=== PATIENT | female | born 1990 | race Caucasian/White ===

== ENCOUNTER 2024-01-13 15:49 | Emergency (ER) | payer BC, SELFPAY ==
--- NOTE | ~2024-01-13 | XR_ITS ---
EXAMINATION: XR wrist RT min 3V DATE: 01/13/2024 16:11 INDICATION: Right wrist injury. Fall. TECHNIQUE: 3 views of right wrist were obtained. COMPARISON: None. FINDINGS: There is a comminuted fracture of distal radius involving the distal radioulnar joint and d istal articular surface. The main distal fracture fragment demonstrates impaction and dorsal angulati on. There is 6 degrees dorsal tilt of the distal articular surface. Joint spaces are normal. IMPRESSION: 1. Comminuted fracture of distal radius. Reviewed, dictated and finalized at location E.
[2024-01-13 15:53] VITALS: BP 110/76; PULSE 95; RESP 18; TEMP 36.7; O2SAT 97
[2024-01-13] MEDS: HYDROcodone/acetaminophen (*CRX) 5-325 MG TABLET 1 TAB PO (16:43)
--- NOTE | 2024-01-13 17:10 | ED.UPPEXIN ---
HPI - Extremity Injury (Upper) General Chief Complaint: Extremity Injury, Upper Stated Complaint: wrist injury Time Seen by Provider: 01/13/24 16:21 History of Present Illness HPI narrative: patient was playing soccer and had FOOSH injury right wrist. Reporting pain but no numbness or weakness. No other injuries. Related Data Allergies Allergy/AdvReac Type Severity Reaction Status Date / Time No Known Allergies Allergy Unverified 09/18/18 20:35 Review of Systems Review of Systems: All systems reviewed & are unremarkable except as noted in HPI and below Exam Narrative: EXAMINATION OF ORGAN SYSTEMS/BODY AREAS: Constitutional: Vital signs per nursing GENERAL:[No acute distress, non-toxic appearing.] HEAD: Normal with no signs of head trauma. EYES: EOMI, conjunctiva normal ENT: Hearing grossly intact LUNGS: Nonlabored breathing. HEART: [Regular rate and rhythm], normal radial pulses ABD: Nondistended EXT: tenderness and swelling with hematoma right wrist SKIN:hematoma/bruising right wrist NEURO: [Alert and oriented x 3. No gross focal sensory or strength deficits.] PSYCH: Normal affect Course Vital Signs Vital signs: Vital Signs Temperature 98.0 F 01/13/24 15:53 Pulse Rate 95 01/13/24 15:53 Respiratory Rate 18 01/13/24 15:53 Blood Pressure 110/76 01/13/24 15:53 Pulse Oximetry 97 01/13/24 15:53 Temperature 98.0 F 01/13/24 17:20 Pulse Rate 74 01/13/24 17:20 Respiratory Rate 16 01/13/24 17:20 Blood Pressure 118/68 01/13/24 17:20 Pulse Oximetry 100 01/13/24 17:20 Procedures Nerve Block Nerve Block 1: Nerve block date: 01/13/24 Local Anesthetic: lidocaine 1% Amount of anesthesia used (mL): 3 Side: right Nerve Blocks: hematoma block Procedure Successful: Yes Patient Tolerated Procedure: well and no complications Orthopedic Splinting/Casting Injury #1: Splinting/Casting Date: 01/13/24 Splinting/Casting Time: 17:00 Side: right Upper Extremity Injury Location: wrist Upper Extremity Immobilizer: sugar tong splint Splint: customized in ED Pre-Formed: sling Pre-Procedure Neuro Vascular Exam: normal Post-Procedure Neuro Vascular Exam: normal MDM - Extremity Injury (Upper) MDM Narrative Medical decision making narrative: patient presents here with FOOSH injury, she has obvious deformity and tenderness and swelling to the right wrist, x-ray on my independent interpretation does show comminuted, impacted radial fracture, hematoma block performed with good pain relief, I did attempt gentle traction on the wrist and splint is placed. Patient given follow-up to Orthopedics/Hand. Discharge Plan Discharge Clinical Impression: Fracture of wrist Patient Disposition: Home, Self-Care Condition: Stable Instructions: Antibiotic Form, Wrist Fracture in Adults (ED) Additional Instructions: Please follow up with the surgeon; please come back if you experience any worsening pain, coldness/numbness/weakness, or anything else concerning. If the splint gets too tight you can loosen it. Prescriptions: New acetaminophen [Tylenol Extra Strength] 500 mg tablet 1,000 mg PO Q6H PRN (Reason: pain) Qty: 50 0RF methocarbamol 750 mg tablet 750 mg PO TID PRN (Reason: muscle spasm) Qty: 30 0RF ibuprofen 600 mg tablet 600 mg PO TID PRN (Reason: fever or pain) Qty: 30 0RF oxycodone 5 mg capsule 5 mg PO Q8H PRN (Reason: pain) Qty: 12 0RF Follow-up/Referrals: Chiquita Dang MD [Physician] - 2 Days PHYSICIAN,[employer] [Primary Care Provider] -
[2024-01-13 17:20] VITALS: BP 118/68; PULSE 74; RESP 16; TEMP 36.7; O2SAT 100
== END 2024-01-13 17:21 | disposition home or self-care (01) ==
PROVIDERS: Emergency Provider Emergency Medicine
DX: S52.591A Other fractures of lower end of right radius, initial encounter for closed fracture (principal); W18.30XA Fall on same level, unspecified, initial encounter; Y93.66 Activity, soccer
CPT/HCPCS: 29125; 73110; 99284; A4565; A9270